=== PATIENT | female | born 1985 | race Caucasian/White ===

== ENCOUNTER → 2022-10-29 17:00 | Outpatient (CLI) | payer OTHER, MEDICAID, SELFPAY | PROVIDERS: Visit Provider Physician Assistant | DX: J02.9 Acute pharyngitis, unspecified (principal) | CPT/HCPCS: 87070; 87077; 87147 ==

== ENCOUNTER → 2022-11-07 09:03 | Outpatient (CLI) | payer OTHER, MEDICAID, SELFPAY ==
--- NOTE | 2022-11-07 09:04 | DI.US.S_ITS ---
PROCEDURE: US THYROID INDICATIONS: Left sided nodule palpated on exam TECHNIQUE: Real-time scanning was performed of the thyroid gland, with image documentation. COMPARISON: None. FINDINGS: Right: Thyroid lobe measures 5.0 x 1.4 x 1.7 cm, and is homogeneous in echotexture. Left: Thyroid lobe measures 5.2 x 1.7 x 1.2 cm, and is homogenous in echotexture. Isthmus: 0.2 cm thick. A 0.3 cm right thyroid nodule is considered benign given its small size. No significant lymphadenopathy is seen in the left neck at the palpable area of concern. IMPRESSION: No suspicious thyroid nodule. No significant sonographic abnormality is seen corresponding to the palpable area of concern at the left neck. ACR TI-RADS definitions and recommendations: TI-RADS 1 (benign): 0 points. FNA not needed. TI-RADS 2 (not suspicious): 2 points. FNA not needed. TI-RADS 3 (mildly suspicious): 3 points. * FNA if 2.5 cm or larger, follow up if 1.5 cm or larger (at 1, 3, and 5 years). TI-RADS 4 (moderately suspicious): 4-6 points. * FNA if 1.5 cm or larger, follow up if 1 cm or larger (at 1, 2, 3, and 5 years). TI-RADS 5 (highly suspicious): 7 points or more. * FNA if 1 cm or larger, follow up if 0.5 cm or larger (every year for 5 years). Approved by: Allan Ochoa M.D. on 11/07/2022 at 15:22
== END ==
PROVIDERS: Referring Provider Physician Assistant; Visit Provider Physician Assistant
DX: E04.1 Nontoxic single thyroid nodule (principal)
CPT/HCPCS: 76536